=== PATIENT | female | born 1945 | race Caucasian/White ===

== ENCOUNTER 2022-12-08 10:04 | Emergency (ER) | payer MEDICARE, BC ==
[~2022-12-08] VITALS: Ht 165.1 cm; Wt 67.6 kg
--- NOTE | 2022-12-08 10:55 | NUR ---
PT IS IN ROOM #2B. DR DE LA CRUZ EVALUATED THE PT.
--- NOTE | 2022-12-08 12:02 | NUR ---
PT WAS D/C'd TO HOME . D/C INSTRUCTIONS GIVEN TO THE PT BY DR DE LA CRUZ.
[2022-12-08 12:04] VITALS: BP 139/72
== END 2022-12-08 12:05 | disposition home or self-care (01) ==
LOC: ER 10:04
DX: S63.501A Unspecified sprain of right wrist, initial encounter (principal); S00.83XA Contusion of other part of head, initial encounter; S20.211A Contusion of right front wall of thorax, initial encounter; S09.90XA Unspecified injury of head, initial encounter; I10 Essential (primary) hypertension; E78.5 Hyperlipidemia, unspecified; I48.91 Unspecified atrial fibrillation; E11.9 Type 2 diabetes mellitus without complications; W01.0XXA Fall on same level from slipping, tripping and stumbling without subsequent striking against object, initial encounter; Y93.89 Activity, other specified; Y92.89 Other specified places as the place of occurrence of the external cause; Y99.8 Other external cause status
CPT/HCPCS: 70450; 70486; 71101; 73110; A4663